=== PATIENT | male | born 1990 | race African-American/Black ===

== ENCOUNTER 2022-07-11 06:47 | Emergency (ER) | payer OTHER ==
[2022-07-11 07:09] VITALS: BP 120/68; PULSE 104; RESP 20; TEMP 98.3; BMI 47.5
[2022-07-11] MEDS ORDERED: ACETAMINOPHEN 500 MG TABLET (FP) PO ONE (07:32)
[2022-07-11] MEDS ORDERED: FLUORESCEIN NA 1 EA STRIP OS ONE (07:33)
[2022-07-11] MEDS ORDERED: TETRACAINE 0.5% OPHTH SOLN 2 ML BOTTLE OS ONE (07:34)
[2022-07-11] MEDS ORDERED: FLUORESCEIN NA 1 EA STRIP ONE (07:38)
[2022-07-11] MEDS ORDERED: TETRACAINE 0.5% OPHTH SOLN 2 ML BOTTLE ONE (07:38)
== END 2022-07-11 08:13 | disposition home or self-care (01) ==
LOC: JER 06:47 → JERFT 06:47
DX: H11.32 Conjunctival hemorrhage, left eye (principal); J06.9 Acute upper respiratory infection, unspecified
CPT/HCPCS: 0241U-QW; 99283-25

== ENCOUNTER 2023-01-01 11:17 | Emergency (ER) | payer OTHER ==
[2023-01-01 11:26] VITALS: BMI 47.5
[2023-01-01] MEDS ORDERED: CYCLOBENZAPRINE HCL 10 MG TABLET (FP) PO ONE (12:24)
[2023-01-01] MEDS ORDERED: ACETAMINOPHEN 500 MG TABLET (FP) PO ONE (12:24)
[2023-01-01] MEDS ORDERED: LIDOCAINE 5% TOPICAL PATCH TP ONE (12:24)
[2023-01-01] MEDS ORDERED: LIDOCAINE 5% TOPICAL PATCH ONE (12:29)
[2023-01-01] MEDS ORDERED: ACETAMINOPHEN 500 MG TABLET (FP) ONE (12:29)
[2023-01-01] MEDS ORDERED: CYCLOBENZAPRINE HCL 10 MG TABLET (FP) ONE (12:29)
[2023-01-01 13:24] VITALS: BP 138/94; PULSE 84; RESP 19; TEMP 98.7
[2023-01-01] MEDS ORDERED: LIDOCAINE PATCH REMOVAL MC ONE (22:00)
== END 2023-01-01 14:32 | disposition home or self-care (01) ==
LOC: JERFT 11:17
DX: M54.50 Low back pain, unspecified (principal); M25.561 Pain in right knee; V49.40XA Driver injured in collision with unspecified motor vehicles in traffic accident, initial encounter
CPT/HCPCS: 72100-TC-FY; 72131-TC; 73560-TC-RT-FY; 99285-25

== ENCOUNTER 2023-03-14 11:40 | Observation (INO) | payer OTHER ==
[2023-03-14] MEDS ORDERED: SODIUM CHLORIDE 0.9% 500 ML INFUS.BAG IV ONE (13:09)
[2023-03-14 13:37] LABS: BASO % 0.3 % (0-2.0); EOS % 1.7 % (0-4.5); HEMATOCRIT 40.6 % (35.4-49); HEMOGLOBIN 13.3 GM/dL (11.7-16.9); LYMPH % 16.2 % (8-40); MCH 24.5 pg (25.7-33.7); MCHC 32.7 g/dl (32.0-35.9); MEAN CELL VOLUME 75.1 fl (80-96); MEAN PLT VOLUME 9.5 fl (7.5-11.1); MONO % 9.4 % (3.8-10.2); NEUT % 72.4 % (42.8-82.8); PLATELET COUNT 242 10^3/uL (134-434); RBC 5.41 M/mm3 (4.00-5.60); RDW 14.8 % (11.9-15.9); WHITE BLOOD COUNT 10.7 K/mm3 (4.0-10.0)
[2023-03-14 14:02] LABS: CHLORIDE 92 mmol/L (98-107); POTASSIUM 4.9 mmol/L (3.5-5.1); SODIUM 132 mmol/L (136-145)
[2023-03-14 14:06] LABS: ALBUMIN 4.1 g/dl (3.4-5.0); ANION GAP 11 MMOL/L (8-16); CALCIUM 9.7 mg/dL (8.5-10.1); CO2 29 mmol/L (21-32); MAGNESIUM 2.2 mg/dL (1.8-2.4)
[2023-03-14 14:07] LABS: BLOOD UREA NITROGEN 11.8 mg/dL (7-18)
[2023-03-14 14:09] LABS: CREATININE 1.3 mg/dL (0.55-1.3); SGOT/AST 25 U/L (15-37); SGPT/ALT 35 U/L (13-61)
[2023-03-14 14:10] LABS: CHOLESTEROL 258 mg/dL (50-200)
[2023-03-14 14:11] LABS: LDL CHOLESTEROL (ONLY SJRH) 175 mg/dL (5-100); TOT PROT 8.2 g/dl (6.4-8.2)
[2023-03-14 14:13] LABS: ALK PHOS 87 U/L (45-117); GLUCOSE,RANDOM 669 mg/dL (74-106); HDL CHOLESTEROL 23 mg/dL (40-60)
[2023-03-14 14:24] LABS: VENOUS BASE EXCESS -0.8 mmol/L (-2-2); VENOUS O2 SATURATION 64.9 % (70-80); VENOUS PCO2 43.8 mmHg (38-52); VENOUS PH 7.368 (7.310-7.410)
[2023-03-14] MEDS ORDERED: INSULIN (LEVEMIR) 100 UNITS/ML UNITS SQ ONE ×2 (15:26→15:34)
[2023-03-14] MEDS ORDERED: INSULIN REGULAR HUMAN 100 UNITS/ML *VIAL SQ ONE (15:30)
[2023-03-14] MEDS ORDERED: INSULIN REGULAR HUMAN 100 UNITS/ML *VIAL ONE (15:34)
[2023-03-14] MEDS ORDERED: SODIUM CHLORIDE 1,000 ML IV SCH (15:45)
[2023-03-14 15:55] LABS: CHLORIDE 99 mmol/L (98-107); POTASSIUM 4.3 mmol/L (3.5-5.1); SODIUM 135 mmol/L (136-145)
[2023-03-14 15:57] LABS: ALBUMIN 3.8 g/dl (3.4-5.0); CALCIUM 8.8 mg/dL (8.5-10.1)
[2023-03-14 15:58] LABS: ANION GAP 10 MMOL/L (8-16); BLOOD UREA NITROGEN 11.5 mg/dL (7-18); CO2 26 mmol/L (21-32)
[2023-03-14 16:00] LABS: CREATININE 1.1 mg/dL (0.55-1.3)
[2023-03-14 16:01] LABS: SGOT/AST 23 U/L (15-37); SGPT/ALT 36 U/L (13-61)
[2023-03-14 16:02] LABS: BILIRUBIN,TOTAL 0.7 mg/dL (0.2-1); TOT PROT 7.7 g/dl (6.4-8.2)
[2023-03-14 16:03] LABS: ALK PHOS 80 U/L (45-117)
[2023-03-14 16:27] LABS: GLUCOSE,RANDOM 446 mg/dL (74-106)
[2023-03-14] MEDS ORDERED: LACTATED RINGERS SOLUTION 1,000 ML IV SCH (18:00)
[2023-03-14 18:36] VITALS: RESP 18; BMI 47.7
[2023-03-14] MEDS: ATORVASTATIN CA 40 MG TABLET (FP) PO SCH (21:24)
[2023-03-14] MEDS: ENOXAPARIN NA (PORCINE) 40 MG/0.4 ML DISP.SYRIN SQ SCH (21:24)
[2023-03-14] MEDS: INSULIN SLIDING SCALE (NOVOLOG) 1 VIAL SQ SCH (21:42)
[2023-03-15] MEDS: INSULIN SLIDING SCALE (NOVOLOG) 1 VIAL SQ SCH ×4 (06:42→23:21)
[2023-03-15] MEDS ORDERED: INSULIN (LEVEMIR) 100 UNITS/ML UNITS SQ SCH ×2 (08:00)
[2023-03-15] MEDS: INSULIN (LEVEMIR) 100 UNITS/ML UNITS SQ SCH ×2 (09:50→23:21)
[2023-03-15] MEDS: ENOXAPARIN NA (PORCINE) 40 MG/0.4 ML DISP.SYRIN SQ SCH ×2 (09:51→23:25)
[2023-03-15 11:00] LABS: BASO % 0.5 % (0-2.0); EOS % 3.4 % (0-4.5); HEMATOCRIT 37.1 % (35.4-49); HEMOGLOBIN 11.8 GM/dL (11.7-16.9); LYMPH % 18.1 % (8-40); MCH 24.3 pg (25.7-33.7); MCHC 31.8 g/dl (32.0-35.9); MEAN CELL VOLUME 76.3 fl (80-96); MONO % 8.1 % (3.8-10.2); NEUT % 69.9 % (42.8-82.8); PLATELET COUNT 199 10^3/uL (134-434); RBC 4.86 M/mm3 (4.00-5.60); RDW 15.1 % (11.9-15.9); WHITE BLOOD COUNT 6.6 K/mm3 (4.0-10.0)
[2023-03-15 11:17] LABS: CHLORIDE 99 mmol/L (98-107); POTASSIUM 4.4 mmol/L (3.5-5.1); SODIUM 133 mmol/L (136-145)
[2023-03-15 11:22] LABS: ALBUMIN 3.3 g/dl (3.4-5.0); BLOOD UREA NITROGEN 10.7 mg/dL (7-18); CALCIUM 8.4 mg/dL (8.5-10.1)
[2023-03-15 11:23] LABS: ANION GAP 7 MMOL/L (8-16); CO2 27 mmol/L (21-32)
[2023-03-15 11:25] LABS: CREATININE 0.9 mg/dL (0.55-1.3); PHOSPHOROUS 2.8 mg/dL (2.5-4.9); SGPT/ALT 29 U/L (13-61)
[2023-03-15 11:26] LABS: BILIRUBIN,TOTAL 0.8 mg/dL (0.2-1); SGOT/AST 23 U/L (15-37)
[2023-03-15 11:27] LABS: TOT PROT 6.6 g/dl (6.4-8.2)
[2023-03-15 11:28] LABS: ALK PHOS 63 U/L (45-117)
[2023-03-15] MEDS ORDERED: SODIUM CHLORIDE 1,000 ML IV SCH (11:30)
[2023-03-15 11:38] LABS: GLUCOSE,RANDOM 404 mg/dL (74-106)
[2023-03-15] MEDS: LOSARTAN POTASSIUM 50 MG TABLET PO SCH (12:44)
[2023-03-15 20:53] LABS: BLOOD UREA NITROGEN 11.8 mg/dL (7-18); CALCIUM 8.5 mg/dL (8.5-10.1)
[2023-03-15 20:54] LABS: ALBUMIN 3.6 g/dl (3.4-5.0)
[2023-03-15 20:58] LABS: BILIRUBIN,TOTAL 0.5 mg/dL (0.2-1); TOT PROT 7.2 g/dl (6.4-8.2)
[2023-03-15] MEDS: ATORVASTATIN CA 40 MG TABLET (FP) PO SCH (23:23)
[2023-03-16] MEDS: INSULIN SLIDING SCALE (NOVOLOG) 1 VIAL SQ SCH ×2 (06:15→12:08)
[2023-03-16] MEDS ORDERED: INSULIN (LEVEMIR) 100 UNITS/ML UNITS SQ SCH ×2 (08:22→08:23)
[2023-03-16] MEDS: INSULIN (LEVEMIR) 100 UNITS/ML UNITS SQ SCH (08:25)
[2023-03-16] MEDS: LOSARTAN POTASSIUM 50 MG TABLET PO SCH (09:01)
[2023-03-16] MEDS: ENOXAPARIN NA (PORCINE) 40 MG/0.4 ML DISP.SYRIN SQ SCH (09:01)
[2023-03-16 10:22] LABS: HEMATOCRIT 37.7 % (35.4-49); HEMOGLOBIN 12.2 GM/dL (11.7-16.9); MCH 24.5 pg (25.7-33.7); MCHC 32.4 g/dl (32.0-35.9); MEAN CELL VOLUME 75.7 fl (80-96); MEAN PLT VOLUME 9.6 fl (7.5-11.1); PLATELET COUNT 215 10^3/uL (134-434); RBC 4.98 M/mm3 (4.00-5.60); WHITE BLOOD COUNT 6.1 K/mm3 (4.0-10.0)
[2023-03-16 10:46] LABS: CHLORIDE 99 mmol/L (98-107); POTASSIUM 4.5 mmol/L (3.5-5.1); SODIUM 136 mmol/L (136-145)
[2023-03-16 10:49] LABS: ANION GAP 8 MMOL/L (8-16); BLOOD UREA NITROGEN 9.9 mg/dL (7-18); CALCIUM 9.1 mg/dL (8.5-10.1); CO2 29 mmol/L (21-32)
[2023-03-16 10:51] LABS: MAGNESIUM 2.1 mg/dL (1.8-2.4)
[2023-03-16 10:52] LABS: CREATININE 0.9 mg/dL (0.55-1.3)
[2023-03-16 10:53] LABS: PHOSPHOROUS 2.9 mg/dL (2.5-4.9)
[2023-03-16 11:07] LABS: GLUCOSE,RANDOM 401 mg/dL (74-106)
[2023-03-16] MEDS ORDERED: INSULIN (NOVOLOG) ASPART 100 UNITS/ML 10ML VIAL SQ ONE (13:55)
[2023-03-16 15:02] VITALS: BP 139/86; PULSE 91; TEMP 98.6
== END 2023-03-16 15:42 | disposition home or self-care (01) ==
LOC: JER 11:40 → JERBED 16:49 → J5S 17:39
PROVIDERS: ADMIT Internal Medicine
PROC: 3E013VG Introduction of Insulin into Subcutaneous Tissue, Percutaneous Approach (ICD-10-PCS; principal; 2023-03-14)
PROC: 3E0337Z Introduction of Electrolytic and Water Balance Substance into Peripheral Vein, Percutaneous Approach (ICD-10-PCS; 2023-03-14)
DX: E11.65 Type 2 diabetes mellitus with hyperglycemia (principal); H53.8 Other visual disturbances; E66.01 Morbid (severe) obesity due to excess calories; Z68.42 Body mass index [BMI] 45.0-49.9, adult; J45.909 Unspecified asthma, uncomplicated; I10 Essential (primary) hypertension; Z79.4 Long term (current) use of insulin
CPT/HCPCS: 36415; 71045-TC-FY; 80048; 80053; 80061; 82010; 82803; 82962; 83036; 83735; 84100; 84436; 84443; 85025; 85027; 87635; 93005; 93010; 96360; 96361; 96372; 99285-25; G0378

== ENCOUNTER 2023-04-26 17:19 | Emergency (ER) | payer OTHER ==
[2023-04-26 17:33] VITALS: BP 130/75; PULSE 80; RESP 18; TEMP 98.2; BMI 47.5
== END 2023-04-26 19:36 | disposition home or self-care (01) ==
LOC: JER 17:19
DX: E16.2 Hypoglycemia, unspecified (principal); R25.1 Tremor, unspecified
CPT/HCPCS: 82962; 99283-25

== ENCOUNTER 2023-11-09 21:27 | Emergency (ER) | payer OTHER ==
[2023-11-09 21:37] VITALS: BP 123/75; PULSE 93; RESP 20; TEMP 98.6; BMI 47.5
== END 2023-11-09 22:50 | disposition home or self-care (01) ==
LOC: JER 21:27 → JERFT 21:27
DX: H57.13 Ocular pain, bilateral (principal); H10.9 Unspecified conjunctivitis
CPT/HCPCS: 99283-25

== ENCOUNTER 2025-05-30 17:38 | Emergency (ER) | payer OTHER ==
[2025-05-30 17:55] VITALS: BP 120/73; PULSE 96; RESP 20; TEMP 98.4; BMI 48.8
[2025-05-30] MEDS ORDERED: IBUPROFEN 600 MG TABLET (FP) PO ONE (18:28)
[2025-05-30] MEDS: IBUPROFEN 600 MG TABLET (FP) PO ONE (18:38)
== END 2025-05-30 18:40 | disposition home or self-care (01) ==
LOC: JER 17:38 → JERFT 17:38
DX: G44.319 Acute post-traumatic headache, not intractable (principal); V87.7XXA Person injured in collision between other specified motor vehicles (traffic), initial encounter
CPT/HCPCS: 99283-25